=== PATIENT | female | born 1995 | race Caucasian/White ===

== ENCOUNTER 2016-07-11 13:00 | Emergency (ER) | payer SELFPAY ==
[~2016-07-11 13:00] MED LIST: TRINESSA TABLE1 EACH PO
[2016-07-11] MEDS ORDERED: PRENATAL PLUS I1 TAB PO (14:30)
== END 2016-07-11 14:27 | disposition short-term general hospital (02) ==
LOC: ER 13:00
DX: O99.89 Other specified diseases and conditions complicating pregnancy, childbirth and the puerperium (principal); R55 Syncope and collapse; Z3A.15 15 weeks gestation of pregnancy

== ENCOUNTER 2016-08-04 12:05 | Emergency (ER) | payer MEDICAID ==
[~2016-08-04] VITALS: Ht 170.2 cm; Wt 65.8 kg
[~2016-08-04 12:05] MED LIST changes: +PRENATAL PLUS I1 TAB PO
== END 2016-08-04 12:55 | disposition short-term general hospital (02) ==
LOC: ER 12:05
DX: O99.89 Other specified diseases and conditions complicating pregnancy, childbirth and the puerperium (principal); R55 Syncope and collapse; Z3A.19 19 weeks gestation of pregnancy